=== PATIENT | female | born 1985 | race Caucasian/White ===

== ENCOUNTER 2020-10-08 16:12 | Outpatient (CLI) | payer OTHER ==
[2020-10-08 20:21] LABS: BASOPHILS # (AUTO) 0.1 10^3/uL (0.0-0.1); BASOPHILS % (AUTO) 0.8 %; EOSINOPHILS # (AUTO) 0.2 10^3/uL (0.0-0.7); EOSINOPHILS % (AUTO) 2.5 %; HCT - HEMATOCRIT 42.4 % (37.0-47.0); LYMPHOCYTES # (AUTO) 2.2 10^3/uL (1.5-3.5); LYMPHOCYTES % (AUTO) 23.8 %; MEAN CORPUSCULAR HEMOGLOBIN 29.5 pg (27.0-31.0); MEAN CORPUSCULAR VOLUME 89.3 fL (81.0-99.0); MEAN PLATELET VOLUME 10.7 fL (7.9-10.8); MONOCYTES # (AUTO) 0.3 10^3/uL (0.0-1.0); MONOCYTES % (AUTO) 3.7 %; NEUTROPHILS # (AUTO) 6.2 10^3/uL (1.5-6.6); PLT - PLATELET COUNT 337 10^3/uL (130-450); RED BLOOD COUNT 4.75 10^6/uL (4.20-5.40); RED CELL DISTRIBUTION WIDTH 12.5 % (12.0-15.0)
[2020-10-08 20:35] LABS: ALBUMIN 4.2 g/dL (3.2-5.5); ALBUMIN/GLOBULIN RATIO 1.3 (1.0-2.2); BILIRUBIN,TOTAL 0.6 mg/dL (0.2-1.0); CALCIUM 8.9 mg/dL (8.5-10.3); CREATININE 0.8 mg/dL (0.4-1.0); POTASSIUM 3.5 mmol/L (3.5-5.0); TOTAL PROTEIN 7.4 g/dL (6.7-8.2)
[2020-10-08 20:44] LABS: THYROID STIMULATING HORMONE 1.28 uIU/mL (0.34-5.60)
== END 2020-10-08 16:13 | disposition home or self-care (01) ==
LOC: LAB.S 16:12
PROVIDERS: ATTEND Physician Assistant
DX: I10 Essential (primary) hypertension (principal); R55 Syncope and collapse; Z83.2 Family history of diseases of the blood and blood-forming organs and certain disorders involving the immune mechanism; Z83.49 Family history of other endocrine, nutritional and metabolic diseases; F41.9 Anxiety disorder, unspecified
CPT/HCPCS: 36415; 80053; 84443; 85025

== ENCOUNTER 2021-06-17 08:00 | Outpatient (CLI) | payer BC, OTHER ==
--- NOTE | 2021-06-17 17:31 | XRAY Report ---
PROCEDURE: Foot 3 View RT INDICATIONS: SPRAIN OF RIGHT FOOT TECHNIQUE: 3 views of the foot were acquired. COMPARISON: None. FINDINGS: Bones: No fractures or dislocations. No suspicious bony lesions. Note is made of an os navicularis . Soft tissues: No tibiotalar joint effusion. Achilles tendon appears normal. IMPRESSION: No acute osseous abnormalities. Reviewed by: Blanca Sawyer MD on 06/17/2021 5:30 PM PST Approved by: Blanca Sawyer MD on 06/17/2021 5:30 PM PST Station ID: [id number]
== END 2021-06-17 23:59 | disposition home or self-care (01) ==
LOC: DI.S 08:00
PROVIDERS: ATTEND Emergency Medicine
DX: S93.691A Other sprain of right foot, initial encounter (principal)

== ENCOUNTER 2023-09-13 05:56 | Outpatient (CLI) | payer OTHER | END 2023-09-13 23:59 | disposition EMS.NT | LOC: EMS 05:56 | DX: M54.50 Low back pain, unspecified (principal); R53.1 Weakness ==

== ENCOUNTER 2023-09-13 07:17 | Emergency (ER) | payer BC, OTHER ==
--- NOTE | 2023-09-13 07:29 | ED Physician Documentation ---
PD HPI BACK PAIN - Stated complaint Stated Complaint: BACK PX - Chief complaint Chief Complaint: Back Pain - History obtained from History obtained from: Patient - History of Present Illness Timing - onset: Yesterday Timing - duration: Days Timing - details: Gradual onset, Still present Location: Lower, Left Quality: Pain, Spasm, Aching Associated symptoms: No: Fever, Weakness, Numbness, Incontinent of urine Improves with: No: Rest, Meds Worsened by: Lifting Contributing factors: Twisting (she states her dogs needed attention quickly so she jumped out of bed quickly, with twisting motion that caused some back pain but then decreased. Had spasms and stiffness through day, and then marked spasms when getting out of bed this morning.) Similar symptoms before: No diagnosis (prior back pains episodically, not chronic.) Recently seen: Not recently seen Review of Systems Constitutional: denies: Fever, Chills GI: denies: Abdominal Pain : denies: Incontinent Skin: denies: Rash, Lesions Neurologic: denies: Focal weakness, Numbness PD PAST MEDICAL HISTORY - Past Medical History Past Medical History: Yes Cardiovascular: Hypertension Respiratory: None Neuro: Migraines Endocrine/Autoimmune: None GI: Other GAME DESIGNER: None : None HEENT: None Psych: ADD/ADHD Musculoskeletal: None Derm: None - Past Surgical History Past Surgical History: Yes General: Appendectomy - Present Medications Home Medications: Ambulatory Orders Medication Instructions Recorded Confirmed Erenumab-Aooe [Aimovig 70 mg SUBQ Q28D 09/13/23 09/13/23 Autoinjector] Losartan [Cozaar] 1 tab PO DAILY 09/13/23 09/13/23 Meloxicam [Mobic] 7.5 mg PO BID 10 Days #20 tablet 09/13/23 Oxycodone HCl/Acetaminophen 1 each PO Q6H PRN #18 tablet 09/13/23 [Percocet 5-325 mg Tablet] Topiramate 100 mg PO HS PRN 09/13/23 09/13/23 dexAMETHasone [Decadron] 4 mg PO DAILY #5 tablet 09/13/23 tiZANidine [Zanaflex] 4 mg PO Q8H PRN #25 tablet 09/13/23 - Allergies Allergies/Adverse Reactions: Allergies Allergy/AdvReac Type Severity Reaction Status Date / Time red food dye Allergy Headache Uncoded 09/13/23 07:23 - Social History Does the pt smoke?: No Smoking Status: Never smoker Does the pt drink ETOH?: Yes Does the pt have substance abuse?: Yes Substance Use and Type: Marijuana - Immunizations Immunizations are current?: Yes - POLST Patient has POLST: No PD ED PE NORMAL - Vitals Vital signs reviewed: Yes - General General: Alert and oriented X 3, Well developed/nourished, Other (appears very uncomfortable) - Cardiac Cardiac: RRR, No murmur - Respiratory Respiratory: Clear bilaterally - Abdomen Abdomen: Soft, Non tender - Derm Derm: Normal color, Warm and dry - Extremities Extremities: No edema, No calf tenderness / cord - Neuro Neuro: Alert and oriented X 3, No motor deficit, No sensory deficit Results - Vitals Vitals: Vital Signs - 24 hr 09/13/23 09/13/23 07:24 09:38 Temperature 37 C 37.1 C Heart Rate 112 H 95 Respiratory 20 16 Rate Blood Pressure 146/126 H O2 Saturation 99 98 Oxygen O2 Source Room air PD Medical Decision Making - ED course Complexity details: re-evaluated patient (feeling much improved and able to move with reeasonable ability after IM meds. She had been hurting enough that shared decision led to IM meds. ), considered differential (onset back pain with just twisting. No red flags to suggest need for imaging, testing per backpain guidelines. ), d/w patient Departure - Departure Disposition: 01 Home, Self Care Clinical Impression: Low back strain, Spasm of lumbar paraspinous muscle Condition: Stable Record reviewed to determine appropriate education?: Yes Instructions: ED Spasm Back No Trauma Prescriptions: dexAMETHasone [Decadron] 4 mg PO DAILY #5 tablet Meloxicam [Mobic] 7.5 mg PO BID 10 Days #20 tablet Oxycodone HCl/Acetaminophen [Percocet 5-325 mg Tablet] 1 each PO Q6H PRN #18 tablet PRN Reason: pain tiZANidine [Zanaflex] 4 mg PO Q8H PRN #25 tablet PRN Reason: Spasms Comments: He stretching and massage and other local treatments are good. Topical creams or ointments to the area as you were doing is great as well. Commonly will treat back strain and spasms with a combination of anti- inflammatories, muscle relaxant, adding in then acetaminophen 500 to 650 mg 4 times daily or Percocet every 4-6 hours if needed for worse pain. The combination we would typically have you take for a week or so with some anti-inflammatories. To try to reduce triggering of migraines, we can use Decadron steroid anti-inflammatory. This would be helpful for your back and also try to prevent migraine rebound. Add meloxicam nonsteroidal anti-inflammatory and tizanidine muscle relaxant. Than the Tylenol regularly and pain meds on top if needed. I would anticipate improvement over several days but still be wary of lifting bending and twisting. I sent your prescriptions to [facility] pharmacy in [place] as the [facility] is closed on Sundays. Recheck if not improving well over the next several days and resolved by a week. I am prescribing a short course of narcotic pain medication for you. These are potentially dangerous and addictive medications that should be used carefully. These medications may constipate you. Take an [id number] stool softener such as docusate twice daily with plenty of water while taking these med ications. If you go 24 hours without a bowel movement, take [id number] MiraLAX, per package instructions. Do not drink or drive while taking these medications. If you received narcotic or sedating medications while in the emergency department do not drive for 24 hours. Store this medication in a safe, secure place and out of reach of children. It is a violation of federal law to give or sell this medication to another person or to use in a manner other than prescribed. The ED will not refill narcotic prescriptions, including prescriptions lost or stolen. You can dispose of unwanted medications at the [facility]'s office or at several pharmacies such as [facility]. Discharge Date/Time: 09/13/23 09:40
[2023-09-13 07:33] VITALS: BP 146/126
[2023-09-13] MEDS: KETOROLAC 30 MG/ML VIAL IM STA (07:58)
[2023-09-13] MEDS: HYDROmorphone 1 MG/ML CARPUJECT IM STA ×2 (07:59→09:19)
[2023-09-13] MEDS: tiZANidine 4 MG TABLET PO STA (07:59)
[2023-09-13] MEDS: dexAMETHasone 4 MG TABLET PO STA (07:59)
[2023-09-13 09:48] VITALS: O2SAT 98
== END 2023-09-13 09:40 | disposition home or self-care (01) ==
LOC: ED 07:17
DX: M62.830 Muscle spasm of back (principal); X50.1XXA Overexertion from prolonged static or awkward postures, initial encounter; Y92.003 Bedroom of unspecified non-institutional (private) residence as the place of occurrence of the external cause; I10 Essential (primary) hypertension
CPT/HCPCS: 96372; 99283; A9270; J1170; J8540